=== PATIENT | female | born 1965 | race Caucasian/White ===

== ENCOUNTER 2023-04-29 08:00 | Outpatient (CLI) | payer OTHER ==
[2023-04-29 10:53] LABS: BILIRUBIN,URINE NEGATIVE (NEGATIVE); GLUCOSE, URINE (UA) NEGATIVE (NEGATIVE); KETONES,URINE (UA) NEGATIVE (NEGATIVE); LEUKOCYTE ESTERASE, URINE NEGATIVE (NEGATIVE); NITRITE,URINE NEGATIVE (NEGATIVE); OCCULT BLOOD,URINE NEGATIVE (NEGATIVE); PH,URINE 5.5 PH (5.0-7.5); PROTEIN,URINE NEGATIVE (NEGATIVE); UROBILINOGEN,URINE 0.2 (NORMAL) E.U./dL (NORMAL)
[2023-04-29 10:55] LABS: CLARITY,URINE CLEAR (CLEAR)
[2023-04-29 10:56] LABS: BACTERIA,URINE Few /HPF (None Seen); RBC,URINE None Seen /HPF (0-5); SQUAMOUS EPITHELIAL CELL,UR NONE SEEN (<= Few); WBC,URINE 0-3 /HPF (0-5)
[2023-04-29 18:33] LABS: BILIRUBIN,URINE NEGATIVE (NEGATIVE); GLUCOSE, URINE (UA) NEGATIVE (NEGATIVE); KETONES,URINE (UA) NEGATIVE (NEGATIVE); LEUKOCYTE ESTERASE, URINE NEGATIVE (NEGATIVE); NITRITE,URINE NEGATIVE (NEGATIVE); OCCULT BLOOD,URINE NEGATIVE (NEGATIVE); PROTEIN,URINE NEGATIVE (NEGATIVE); UROBILINOGEN,URINE 0.2 (NORMAL) E.U./dL (NORMAL)
[2023-04-29 18:50] LABS: CLARITY,URINE CLEAR (CLEAR)
[2023-04-29 19:31] LABS: BACTERIA,URINE Rare /HPF (None Seen); RBC,URINE None Seen /HPF (0-5); SQUAMOUS EPITHELIAL CELL,UR RARE Squamous (<= Few); WBC,URINE 0-3 /HPF (0-5)
== END 2023-04-29 23:59 | disposition home or self-care (01) ==
LOC: LAB.S 08:00
PROVIDERS: ATTEND Emergency Medicine
DX: R30.0 Dysuria (principal)
CPT/HCPCS: 81001; 87086

== ENCOUNTER 2023-06-15 14:16 | Outpatient (CLI) | payer OTHER ==
--- NOTE | 2023-06-15 16:11 | XRAY Report ---
PROCEDURE: Toe(s) LT INDICATIONS: LEFT GREAT TOE CONTUSION TECHNIQUE: 3 views of the left great toe(s) acquired. COMPARISON: None FINDINGS: Bones: There is a mildly displaced intra-articular fracture involving the left great toe distal phala nx. Overlying soft tissue edema. Degenerative changes of the left first metatarsophalangeal joint. N o suspicious bony lesions. Soft tissues: No suspicious soft tissue densities. IMPRESSION: Mildly displaced, intra-articular fracture of the left great toe distal phalanx. Reviewed by: Carlos A Lara MD on 06/15/2023 3:10 PM NO Approved by: Carlos A Lara MD on 06/15/2023 3:10 PM NO Station ID: [id number]
== END 2023-06-15 23:59 | disposition home or self-care (01) ==
LOC: DI.S 14:16
PROVIDERS: ATTEND Emergency Medicine
DX: S92.422A Displaced fracture of distal phalanx of left great toe, initial encounter for closed fracture (principal)
CPT/HCPCS: 73660